=== PATIENT | male | born 1960 | race Caucasian/White ===

== ENCOUNTER 2023-06-26 20:05 | Observation (INO) | payer BC ==
[2023-06-26] MEDS ORDERED: TRANDATE 20 MG/4 ML SYRINGE IV ONE ×2 (20:21→20:31)
[2023-06-26] MEDS ORDERED: Sodium Chloride 0.9% 1000 ML 1,000 ML IV SCH (20:30)
[2023-06-26] MEDS ORDERED: Sodium Chloride 0.9% 1000 ML 1,000 ML ONE (20:32)
--- NOTE | 2023-06-26 20:35 | ERPHSYRPT ---
- History of Present Illness Time Seen by Provider: 06/26/23 20:31 Source: patient, family Exam Limitations: no limitations Patient Subjective Stated Complaint: pts states that she brought him in to be evaluated because he hasn't been acting right today or yesterday, states he has "just been off" and that his motor responses are delayed, his reactions are delayed, his speech is delayed and just not himself. Triage Nursing Assessment: pt ambulated to room 6 independently with slow steady gait after standing on scales for weight acquisition. pt is alert and oriented times three, able to speak in complete sentences, able to move all extremities, and with resp even and unlabored. pt answers all questions appropriate with delay in answering, delay in him turning to voice and making eye contact, and slowed motor movements. pt states he think he had a stroke yesterday at work but is unable to describe why he feels this way. at times it appears as if he is searching for the word he wants to use and when asked he answers "yes" that he s ometimes has a hard time finding the word he wants to say or how to express himself. pt denies cp, sob, difficulty breathing, dizziness, lightheadedness, weakness, numbness, tingling, n/v, diarrhea, difficulty with urination or bowel elimination. Physician History: Patient is 63-year-old male with history of hyper aplasia of the prostate, according to the patient has been acting confused since yesterday and slowing the response. When patient was asked patient has slow speech and he is feeling weak. He was all right since yesterday afternoon. In emergency room he denies any chest pain shortness of breath abdominal pain any bladder or bowel trouble. pts states that she brought him in to be evaluated because he hasn't been acting right today or yesterday, states he has "just been off" and that his motor responses are delayed, his reactions are delayed, his speech is delayed and just not himself. Timing/Duration: yesterday Severity: mild Associated Symptoms: denies symptoms Allergies/Adverse Reactions: No Known Drug Allergies Allergy (Verified 06/26/23 20:09) Home Medications: Tamsulosin HCl 0.4 mg [Flomax 0.4 MG] 0.4 mg PO DAILY 06/26/23 [History] Hx Tetanus, Diphtheria Vaccination/Date Given: No Hx Influenza Vaccination/Date Given: No Hx Pneumococcal Vaccination/Date Given: No Immunizations Up to Date: No Travel Risk - International Travel Have you traveled outside of the country in past 3 weeks: No - Coronavirus Screening Are you exhibiting any of the following symptoms?: No Close contact with a COVID-19 positive Pt in past 14-21 Days: No - Vaccine Status Have you recieved a Covid-19 vaccination: No - Review of Systems Constitutional: Weakness, No Fever, No Chills Eyes: No Symptoms Ears, Nose, & Throat: No Symptoms Respiratory: No Cough, No Dyspnea Cardiac: No Chest Pain, No Edema, No Syncope Abdominal/Gastrointestinal: No Abdominal Pain, No Nausea, No Vomiting, No Diarrhea Genitourinary Symptoms: No Dysuria Musculoskeletal: No Back Pain, No Neck Pain Skin: No Rash Neurological: Lethargy, Speech Changes, No Dizziness, No Focal Weakness, No Sensory Changes Psychological: No Symptoms Endocrine: No Symptoms All Other Systems: Reviewed and Negative - Past Medical History Pertinent Past Medical History: Yes Neurological History: No Pertinent History ENT History: No Pertinent History Cardiac History: No Pertinent History Respiratory History: No Pertinent History Endocrine Medical History: No Pertinent History Musculoskeletal History: Fractures GI Medical History: GERD History: No Pertinent History Psycho-Social History: No Pertinent History Male Reproductive Disorders: Prostate Problems Other Medical History: ankle surgery - Past Surgical History Past Surgical History: Yes Neuro Surgical History: No Pertinent History Cardiac: No Pertinent History Respiratory: No Pertinent History Gastrointestinal: No Pertinent History Genitourinary: No Pertinent History Musculoskeletal: Orthopedic Surgery Male Surgical History: No Pertinent History - Social History Smoking Status: Current every day smoker How long have you smoked: 1978 Exposure to second hand smoke: No Drug Use: none Patient Lives Alone: No - Nursing Vital Signs Nursing Vital Signs: Initial Vital Signs Temperature 98.3 F 06/26/23 20:11 Pulse Rate 69 06/26/23 20:11 Respiratory Rate 16 06/26/23 20:11 Blood Pressure 180/101 06/26/23 20:11 O2 Sat by Pulse Oximetry 96 06/26/23 20:11 Pain Scale Pain Intensity 0 - Physical Exam General Appearance: mild distress, alert, lethargy Eye Exam: PERRL/EOMI, eyes nml inspection Ears, Nose, Throat Exam: normal ENT inspection, TMs normal, pharynx normal, moist mucous membranes Neck Exam: normal inspection, non-tender, supple, full range of motion Respiratory Exam: normal breath sounds, lungs clear, No respiratory distress Cardiovascular Exam: regular rate/rhythm, normal heart sounds, normal peripheral pulses Gastrointestinal/Abdomen Exam: soft, normal bowel sounds, No tenderness, No mass Back Exam: normal inspection, normal range of motion, No CVA tenderness, No vertebral tenderness Extremity Exam: normal inspection, normal range of motion, pelvis stable Neurologic Exam: alert, cooperative, normal mood/affect, nml cerebellar function, nml station & gait, sensation nml, confusion, No motor deficits, No sensory deficit Skin Exam: normal color, warm, dry, No rash Lymphatic Exam: No adenopathy - Course Nursing assessment & vital signs reviewed: Yes EKG Interpreted by Me: Sinus Rhythm - CT Exams Head CT Interpretation: Tele-radiologist Report Ordered Tests: Active Orders 24 hr Category Date Time Status 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 STAT Care 06/26/23 20:21 Active EKG-ER Only STAT Care 06/26/23 20:21 Active IV Insertion STAT Care 06/26/23 20:29 Active NPO (ED) STAT Care 06/26/23 20:21 Active Oxygen-ED Only Nasal Cannula 2 lpm Care 06/26/23 20:21 Active Tele-Health Consult ROUTINE Cons 06/26/23 21:15 Active HEAD WITHOUT CONTRAST [CT] Stat Exams 06/26/23 20:21 Completed CBC W DIFF Stat Lab 06/26/23 21:05 Completed CMP Stat Lab 06/26/23 21:05 Completed ETHYL ALCOHOL Stat Lab 06/26/23 21:05 Completed MAGNESIUM Stat Lab 06/26/23 21:05 Completed TROPONIN Q4H Lab 06/26/23 21:05 Completed TROPONIN Q4H Lab 06/27/23 00:30 Ordered TROPONIN Q4H Lab 06/27/23 04:30 Ordered UA W/RFX UR CULTURE Stat Lab 06/26/23 20:21 Ordered Transfer Order Routine Transfer 06/26/23 Ordered Medication Summary Generic Name Dose Route Start Last Admin Trade Name Freq PRN Reason Stop Dose Admin Sodium Chloride 1,000 mls @ 100 mls/hr 06/26/23 20:30 06/26/23 20:38 Sodium Chloride 0.9% 1000 Ml IV 07/26/23 20:29 100 mls/hr .Q10H CAROL Administration Discontinued Medications Generic Name Dose Route Start Last Admin Trade Name Siobhan PRN Reason Stop Dose Admin Aspirin 324 mg 06/26/23 22:19 06/26/23 22:21 Aspirin 81 Mg Tab.Chew PO 06/26/23 22:20 324 mg STAT ONE Administration Labetalol HCl 20 mg 06/26/23 20:21 06/26/23 20:38 Labetalol Hcl 20 Mg/4 Ml Disp.Syringe IV 06/26/23 20:22 20 mg STAT ONE Administration Labetalol HCl Confirm 06/26/23 20:31 Labetalol Hcl 20 Mg/4 Ml Disp.Syringe Administered 06/26/23 20:32 Dose 20 mg IV .[employer] ONE Lab/Rad Data: Laboratory Result Diagrams 06/26/23 21:05 06/26/23 21:05 Laboratory Results 06/26/23 06/26/23 06/26/23 Range/Units 21:05 21:05 21:05 WBC 10.2 (4.0-10.5) x10^3/uL RBC 4.89 (4.1-5.6) x10^6/uL Hgb 15.5 (12.5-18.0) g/dL Hct 47.0 (42-50) % MCV 96.1 (78-100) fL MCH 31.7 (26-32) pg MCHC 33.0 (32-36) g/dL RDW 13.4 (11.5-14.0) % Plt Count 205 (150-450) x10^3/uL MPV 11.3 H (7.5-11.0) fL Gran % 63.2 (36.0-66.0) % Immature Gran % (Auto) 0.3 (0.00-0.4) % Nucleat RBC Rel Count 0.0 (0.00-0.1) % Eos # (Auto) 0.19 (0-0.5) x10^3/uL Immature Gran # (Auto) 0.03 (0.00-0.03) x10^3u/L Absolute Lymphs (auto) 2.62 (1.0-4.6) x10^3/uL Absolute Monos (auto) 0.84 (0.0-1.3) x10^3/uL Absolute Nucleated RBC 0.00 (0.00-0.01) x10^3u/L Lymphocytes % 25.6 (24.0-44.0) % Monocytes % 8.2 (0.0-12.0) % Eosinophils % 1.9 (0.00-5.0) % Basophils % 0.8 (0.0-0.4) % Absolute Granulocytes 6.47 (1.4-6.9) x10^3/uL Basophils # 0.08 (0-0.4) x10^3/uL Sodium 141 (137-145) mmol/L Potassium 4.0 (3.5-5.1) mmol/L Chloride 107 (98-107) mmol/L Carbon Dioxide 27 (22-30) mmol/L Anion Gap 10.1 (5-15) MEQ/L BUN 23 H (9-20) mg/dL Creatinine 1.10 (0.66-1.25) mg/dL Estimated GFR > 60.0 ML/MIN Glucose 104 (74-106) mg/dL Calcium 8.9 (8.4-10.2) mg/dL Magnesium 2.1 (1.6-2.3) mg/dL Total Bilirubin 0.70 (0.2-1.3) mg/dL AST 26 (17-59) U/L ALT 26 (0-50) U/L Alkaline Phosphatase 125 (38-126) U/L Troponin I < 0.012 (0.000-0.034) ng/mL Serum Total Protein 6.8 (6.3-8.2) g/dL Albumin 4.0 (3.5-5.0) g/dL Ethyl Alcohol < 10 (0-10) mg/dL 0005 CT/HEAD WITHOUT CONTRAST CLINICAL HISTORY:confusion COMPARISON:None. TECHNIQUE:An axial non-contrast CT scan of the brain was performed from the skull base to the high parietal region. CTDI 53.92 mGy, DLP 1016.25 mGycm. FINDINGS: The left frontal cortical-subcortical hypodense area was noted. Further evaluation is advised. No other focal parenchymal abnormalities are demonstrated. Normal size and configuration of the cerebral ventricles. No abnormal extra-axial fluid collections are present. The posterior fossa is unremarkable. The skull base and calvarium are intact. Moderate mucosal thickening in the ethmoid air cells and frontal sinus. The rest of the included portions of the paranasal sinuses and mastoid air cells are clear. IMPRESSION: 1. Cortical-subcortical hypodense area in the left frontal lobe. The possibility of acute infarct needs to be considered. Further evaluation with diffusion-weighted and contrast-enhanced MR is recommended. 2. Moderate mucosal thickening in the ethmoid air cells and frontal sinus. The ER was called at [phone] Ext: [phone] at 08:02 PM MASON HELPER, and results were communicated with Will. Electronically Signed by: Colby Dang MD. (06/26/2023 20:08:17 MASON HELPER) - Progress Progress: improved Progress Note: 06/26/23 21:28 Tele Neuroconsult ordered. Discussed with : Other Will see patient in: hospital (full admit) Counseled pt/family regarding: lab results, diagnosis, need for follow-up, rad results Medical Desision Making - Diagnostic Testing Diagnostic test were ordered, analyzed, and reviewed by me: Yes Radiological Interpretation: Teleradiologist Report - Risk of complications The pt has a high risk of morbidity or mortality based on: Drug therapy requiring intensive monitoring for toxicity, Decision regarding hospitilization or escalation of hosp level of care - Departure Departure Disposition: In-patient Admission Clinical Impression: CVA (cerebrovascular accident) Qualifiers: CVA mechanism: embolism Precerebral and cerebral artery: anterior cerebral artery Laterality of affected vessel: left Qualified Code(s): I63.422 - 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
--- NOTE | 2023-06-26 21:10 | XRAY ---
CLINICAL HISTORY:confusion COMPARISON:None. TECHNIQUE:An axial non-contrast CT scan of the brain was performed from the skull base to the high parietal region. CTDI 53.92 mGy, DLP 1016.25 mGycm. FINDINGS: The left frontal cortical-subcortical hypodense area was noted. Further evaluation is advised. No other focal parenchymal abnormalities are demonstrated. Normal size and configuration of the cerebral ventricles. No abnormal extra-axial fluid collections are present. The posterior fossa is unremarkable. The skull base and calvarium are intact. Moderate mucosal thickening in the ethmoid air cells and frontal sinus. The rest of the included portions of the paranasal sinuses and mastoid air cells are clear. IMPRESSION: 1. Cortical-subcortical hypodense area in the left frontal lobe. The possibility of acute infarct needs to be considered. Further evaluation with diffusion-weighted and contrast-enhanced MR is recommended. 2. Moderate mucosal thickening in the ethmoid air cells and frontal sinus. The ER was called at [phone] Ext: [phone] at 08:02 PM DIRECTOR VACCINE, and results were communicated with Will. Electronically Signed by: Colby Dang MD. (06/26/2023 20:08:17 DIRECTOR VACCINE)
[2023-06-26 21:19] LABS: Absolute Neutrophil Ct (ANC) 6.47 x10^3/uL (1.4-6.9); BASOPHIL % 0.8 % (0.0-0.4); Basophil (Absolute #) 0.08 x10^3/uL (0-0.4); Eosinophil % 1.9 % (0.00-5.0); Eosinophil (Absolute #) 0.19 x10^3/uL (0-0.5); Hemoglobin 15.5 g/dL (12.5-18.0); IMMATURE GRAN # 0.03 x10^3u/L (0.00-0.03); IMMATURE GRAN % 0.3 % (0.00-0.4); Lymphocyte (Absolute #) 2.62 x10^3/uL (1.0-4.6); Lymphocytes % 25.6 % (24.0-44.0); Mean Cell Volume 96.1 fL (78-100); Mean Corpuscular Hemoglobin 31.7 pg (26-32); Mean Platelet Volume 11.3 fL (7.5-11.0); Monocyte (Absolute #) 0.84 x10^3/uL (0.0-1.3); Monocytes % 8.2 % (0.0-12.0); Neutrophil % 63.2 % (36.0-66.0); Platelet Count 205 x10^3/uL (150-450); Red Blood Count 4.89 x10^6/uL (4.1-5.6); Red Cell Distribution Width 13.4 % (11.5-14.0); White Blood Count 10.2 x10^3/uL (4.0-10.5)
[2023-06-26 21:22] LABS: ALKALINE PHOSPHATASE 125 U/L (38-126); ANION GAP 10.1 MEQ/L (5-15); BLOOD UREA NITROGEN 23 mg/dL (9-20); CHLORIDE 107 mmol/L (98-107); Calcium 8.9 mg/dL (8.4-10.2); Carbon Dioxide 27 mmol/L (22-30); EST GLOMERULAR FILTRATION RATE > 60.0 ML/MIN; ETHYL ALCOHOL < 10 mg/dL (0-10); Glucose 104 mg/dL (74-106); MAGNESIUM 2.1 mg/dL (1.6-2.3); SGOT/AST 26 U/L (17-59); SGPT/ALT 26 U/L (0-50); SODIUM 141 mmol/L (137-145); Total Protein 6.8 g/dL (6.3-8.2)
[2023-06-26] MEDS ORDERED: BABY ASPIRIN 81 MG CHEW PO ONE (22:19)
--- NOTE | 2023-06-27 02:09 | PCM.HP ---
History of Present Illness - Chief Complaint Chief Complaint: cva Date: 06/27/23 History of Present Illness: This is a 63-year-old male admitted after work-up in ER revealed left likely embolic CVA. He has past medical history of BPH. He was brought to the ED this afternoon for evaluation of slow speech and feeling weak. Initial vital signs were afebrile, heart rate 69, blood pressure 180/101 Labs significant for WBC 10, sodium 141, creatinine 1.1, alcohol level less than [address] revealed corticalsubcortical hypodense area in the left frontal lobe. Neuro consult was obtained and he is admitted for further work-up. - Review of Systems Eyes: No Symptoms Ears, Nose, & Throat: No Symptoms Respiratory: No Symptoms Cardiac: No Symptoms Abdominal/Gastrointestinal: No Symptoms Genitourinary Symptoms: No Symptoms Musculoskeletal: No Symptoms Skin: No Symptoms Neurological: No Symptoms Psychological: No Symptoms Endocrine: No Symptoms Medications & Allergies Home Medications: Home Medication List Tamsulosin HCl 0.4 mg [Flomax 0.4 MG] 0.4 mg PO DAILY 06/26/23 [History Confirmed 06/26/23] Allergies/Adverse Reactions: Allergies Allergy/AdvReac Type Severity Reaction Status Date / Time No Known Drug Allergies Allergy Verified 06/26/23 20:09 - Past Medical History Past Medical History: Yes Neurological History: No Pertinent History ENT History: No Pertinent History Cardiac History: No Pertinent History Respiratory History: No Pertinent History Endocrine Medical History: No Pertinent History Musculoskelatal History: Arthritis GI Medical History: No Pertinent History History: No Pertinent History Pyscho-Social History: No Pertinent History Male Reproductive Disorders: No Pertinent History Comment: ankle surgery - Past Surgical History Past Surgical History: Yes Neuro Surgical History: No Pertinent History Cardiac History: No Pertinent History Respiratory Surgery: No Pertinent History GI Surgical History: No Pertinent History Genitourinary Surgical Hx: No Pertinent History Musculskeletal Surgical Hx: No Pertinent History Male Surgical History: No Pertinent History - Social History Smoking Status: Current every day smoker How long have you smoked: 40 years Exposure to second hand smoke: No Alcohol: None Drug Use: none - Physical Exam Vital Signs: Vital Signs - 24 hr Temp Pulse Resp BP BP Pulse Ox 06/27/23 00:00 58 L 20 144/88 95 06/26/23 23:50 57 L 16 155/84 96 06/26/23 23:40 57 L 18 138/99 97 06/26/23 23:30 58 L 18 142/79 98 06/26/23 23:20 54 L 15 127/74 97 06/26/23 23:10 50 L 14 123/77 97 06/26/23 23:00 58 L 22 125/75 97 06/26/23 22:50 59 L 20 148/79 96 06/26/23 22:40 59 L 17 140/79 97 06/26/23 22:30 66 17 138/84 96 06/26/23 22:20 66 21 148/84 97 06/26/23 22:10 61 16 147/88 97 06/26/23 22:00 63 19 171/95 97 06/26/23 21:50 61 18 150/93 97 06/26/23 21:41 64 17 163/88 98 06/26/23 21:30 62 19 163/97 97 06/26/23 21:20 63 21 151/85 98 06/26/23 21:10 60 17 142/91 97 06/26/23 20:50 64 12 153/105 97 06/26/23 20:40 75 21 162/95 97 06/26/23 20:27 72 18 174/98 97 06/26/23 20:11 98.3 F 69 16 180/101 96 General Appearance: no apparent distress Neurologic Exam: alert, oriented x 3 Eye Exam: PERRL/EOMI Ears, Nose, Throat Exam: normal ENT inspection Neck Exam: normal inspection Respiratory Exam: normal breath sounds Cardiovascular Exam: regular rate/rhythm Gastrointestinal/Abdomen Exam: soft Extremity Exam: normal inspection Skin Exam: normal color Results - Labs Lab/Micro Results: Lab Results-Last 24 Hours 06/26/23 06/26/23 06/26/23 Range/Units 21:05 21:05 21:05 WBC 10.2 (4.0-10.5) x10^3/uL RBC 4.89 (4.1-5.6) x10^6/uL Hgb 15.5 (12.5-18.0) g/dL Hct 47.0 (42-50) % MCV 96.1 (78-100) fL MCH 31.7 (26-32) pg MCHC 33.0 (32-36) g/dL RDW 13.4 (11.5-14.0) % Plt Count 205 (150-450) x10^3/uL MPV 11.3 H (7.5-11.0) fL Gran % 63.2 (36.0-66.0) % Immature Gran % (Auto) 0.3 (0.00-0.4) % Nucleat RBC Rel Count 0.0 (0.00-0.1) % Eos # (Auto) 0.19 (0-0.5) x10^3/uL Immature Gran # (Auto) 0.03 (0.00-0.03) x10^3u/L Absolute Lymphs (auto) 2.62 (1.0-4.6) x10^3/uL Absolute Monos (auto) 0.84 (0.0-1.3) x10^3/uL Absolute Nucleated RBC 0.00 (0.00-0.01) x10^3u/L Lymphocytes % 25.6 (24.0-44.0) % Monocytes % 8.2 (0.0-12.0) % Eosinophils % 1.9 (0.00-5.0) % Basophils % 0.8 (0.0-0.4) % Absolute Granulocytes 6.47 (1.4-6.9) x10^3/uL Basophils # 0.08 (0-0.4) x10^3/uL Sodium 141 (137-145) mmol/L Potassium 4.0 (3.5-5.1) mmol/L Chloride 107 (98-107) mmol/L Carbon Dioxide 27 (22-30) mmol/L Anion Gap 10.1 (5-15) MEQ/L BUN 23 H (9-20) mg/dL Creatinine 1.10 (0.66-1.25) mg/dL Estimated GFR > 60.0 ML/MIN Glucose 104 (74-106) mg/dL Calcium 8.9 (8.4-10.2) mg/dL Magnesium 2.1 (1.6-2.3) mg/dL Total Bilirubin 0.70 (0.2-1.3) mg/dL AST 26 (17-59) U/L ALT 26 (0-50) U/L Alkaline Phosphatase 125 (38-126) U/L Troponin I < 0.012 (0.000-0.034) ng/mL Serum Total Protein 6.8 (6.3-8.2) g/dL Albumin 4.0 (3.5-5.0) g/dL Ethyl Alcohol < 10 (0-10) mg/dL 06/27/23 Range/Units 00:40 WBC (4.0-10.5) x10^3/uL RBC (4.1-5.6) x10^6/uL Hgb (12.5-18.0) g/dL Hct (42-50) % MCV (78-100) fL MCH (26-32) pg MCHC (32-36) g/dL RDW (11.5-14.0) % Plt Count (150-450) x10^3/uL MPV (7.5-11.0) fL Gran % (36.0-66.0) % Immature Gran % (Auto) (0.00-0.4) % Nucleat RBC Rel Count (0.00-0.1) % Eos # (Auto) (0-0.5) x10^3/uL Immature Gran # (Auto) (0.00-0.03) x10^3u/L Absolute Lymphs (auto) (1.0-4.6) x10^3/uL Absolute Monos (auto) (0.0-1.3) x10^3/uL Absolute Nucleated RBC (0.00-0.01) x10^3u/L Lymphocytes % (24.0-44.0) % Monocytes % (0.0-12.0) % Eosinophils % (0.00-5.0) % Basophils % (0.0-0.4) % Absolute Granulocytes (1.4-6.9) x10^3/uL Basophils # (0-0.4) x10^3/uL Sodium (137-145) mmol/L Potassium (3.5-5.1) mmol/L Chloride (98-107) mmol/L Carbon Dioxide (22-30) mmol/L Anion Gap (5-15) MEQ/L BUN (9-20) mg/dL Creatinine (0.66-1.25) mg/dL Estimated GFR ML/MIN Glucose (74-106) mg/dL Calcium (8.4-10.2) mg/dL Magnesium (1.6-2.3) mg/dL Total Bilirubin (0.2-1.3) mg/dL AST (17-59) U/L ALT (0-50) U/L Alkaline Phosphatase (38-126) U/L Troponin I < 0.012 (0.000-0.034) ng/mL Serum Total Protein (6.3-8.2) g/dL Albumin (3.5-5.0) g/dL Ethyl Alcohol (0-10) mg/dL - Radiology Impressions Radiology Exams & Impressions: Radiology Procedures Category Date Time Status CAROTID BILATERAL [US] Routine Exams 06/27/23 00:[address] ANGIOGRAPHY NECK [CT] Routine Exams 06/27/23 00:39 Ordered CTA HEAD W AND/OR WO CONTRAST [CT] Routine Exams 06/27/23 08:00 Ordered ECHO W/2D AND DOPPLER [US] Routine Exams 06/27/23 00:39 Ordered HEAD WITHOUT CONTRAST [CT] Stat Exams 06/26/23 20:21 Completed MRA BRAIN WITHOUT CONTRAST [MRI] Routine Exams 06/27/23 00:39 Ordered MRA NECK WITHOUT CONTRAST [MRI] Routine Exams 06/27/23 00:39 Ordered MRI BRAIN W & W/O CONTRAST [MRI] Routine Exams 06/27/23 00:39 Ordered - Other Procedures and Tests Respiratory Therapy 06/27/23 01:36 Smoking Cessation Education ONCE Assessment/Plan (1) CVA (cerebrovascular accident) Current Visit: Yes Status: Acute Qualifiers: CVA mechanism: embolism Precerebral and cerebral artery: anterior cerebral artery Laterality of affected vessel: left Qualified Code(s): I63.422 - 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
[2023-06-27 02:50] LABS: Appearance Clear (Clear); Bacteria None Seen /HPF (None Seen); Bilirubin Negative (Negative); Blood Negative (Negative); Epithelial Cells None Seen /HPF (None Seen); Glucose, Urine Negative (Negative); Hyaline Casts NONE SEEN /LPF (0-2); Ketones Negative (Negative); Leukocyte Esterase Trace (Negative); Nitrite Negative (Negative); Protein,Urine Dip Negative (Negative); RBC 0-2 /HPF (0-5)
[2023-06-27 02:51] LABS: ADD URINE CULTURE? NO (NO)
[2023-06-27 05:57] LABS: Risk Ratio 6.2
[2023-06-27 06:09] LABS: Absolute Neutrophil Ct (ANC) 4.72 x10^3/uL (1.4-6.9); BASOPHIL % 0.7 % (0.0-0.4); Basophil (Absolute #) 0.06 x10^3/uL (0-0.4); Eosinophil % 2.4 % (0.00-5.0); Eosinophil (Absolute #) 0.21 x10^3/uL (0-0.5); Hematocrit 46.7 % (42-50); Hemoglobin 15.4 g/dL (12.5-18.0); IMMATURE GRAN # 0.03 x10^3u/L (0.00-0.03); IMMATURE GRAN % 0.3 % (0.00-0.4); Lymphocyte (Absolute #) 2.89 x10^3/uL (1.0-4.6); Lymphocytes % 33.3 % (24.0-44.0); Mean Cell Volume 95.5 fL (78-100); Mean Corpuscular Hemoglobin 31.5 pg (26-32); Mean Platelet Volume 11.6 fL (7.5-11.0); Monocyte (Absolute #) 0.76 x10^3/uL (0.0-1.3); Monocytes % 8.8 % (0.0-12.0); Neutrophil % 54.5 % (36.0-66.0); Platelet Count 194 x10^3/uL (150-450); Red Blood Count 4.89 x10^6/uL (4.1-5.6); Red Cell Distribution Width 13.5 % (11.5-14.0); White Blood Count 8.7 x10^3/uL (4.0-10.5)
[2023-06-27 06:15] LABS: ALBUMIN 3.6 g/dL (3.5-5.0); ALKALINE PHOSPHATASE 103 U/L (38-126); ANION GAP 10.1 MEQ/L (5-15); BLOOD UREA NITROGEN 21 mg/dL (9-20); CHLORIDE 109 mmol/L (98-107); Calcium 8.7 mg/dL (8.4-10.2); Carbon Dioxide 26 mmol/L (22-30); Creatinine 1 0.95 mg/dL (0.66-1.25); EST GLOMERULAR FILTRATION RATE > 60.0 ML/MIN; Glucose 119 mg/dL (74-106); Potassium 3.7 mmol/L (3.5-5.1); SGOT/AST 24 U/L (17-59); SGPT/ALT 23 U/L (0-50); SODIUM 142 mmol/L (137-145); Total Protein 6.2 g/dL (6.3-8.2)
[2023-06-27] MEDS: Sodium Chloride 0.9% 1000 ML 1,000 ML IV SCH (06:30)
--- NOTE | 2023-06-27 07:40 | PCM.NOTE ---
Date and Time: 06/27/23728 Subjective Assessment: Mr. Lobo is a 63 year old male with a PMHX of bph and current every day smoker that presented to ER 06/26/23 with AMS per spouse, headache, and aphasia since the day prior admitted for CVA. Neurology consult has been obtained with further workup pending at this time. During interview/exam A&O x 3, CN 2-12 grossly intact, 5/5 strength all extremities, no drift, no facial drooping, speech clear, moves all extremities well. Denies fever, cough, sob, cp, abdominal pain, ALEXANDER, dizziness, N/V/D. Patient tearful during interview. Counseled and advised smoking cessation, patient will consider but not ready at this time. - Review of Systems Constitutional: No Symptoms Eyes: No Symptoms Ears, Nose, & Throat: No Symptoms Respiratory: No Symptoms Cardiac: No Symptoms Abdominal/Gastrointestinal: No Symptoms Genitourinary Symptoms: No Symptoms Musculoskeletal: No Symptoms Skin: No Symptoms Neurological: Speech Changes Psychological: No Symptoms Endocrine: No Symptoms Hematologic/Lymphatic: No Symptoms Immunological/Allergic: No Symptoms Objective Exam General Appearance: no apparent distress Neurologic Exam: alert, oriented x 3, cooperative, picture frame maker II-XII nml as tested, nml station & gait, sensation nml Skin Exam: normal color Eye Exam: PERRL Ears, Nose, Throat Exam: normal ENT inspection Neck Exam: normal inspection Respiratory Exam: normal breath sounds, lungs clear Cardiovascular Exam: regular rate/rhythm, normal heart sounds Gastrointestinal/Abdomen Exam: soft, normal bowel sounds Extremity Exam: normal inspection, normal range of motion Back Exam: normal inspection Male Genitalia Exam: deferred Rectal Exam: deferred OBJECTIVE DATA Vital Signs: Vital Signs - 24 hr Temp Pulse Resp BP BP Pulse Ox 06/27/23 04:00 97.7 F 52 L 20 140/85 96 06/27/23 00:00 58 L 20 144/88 95 06/26/23 23:50 57 L 16 155/84 96 06/26/23 23:40 57 L 18 138/99 97 06/26/23 23:30 58 L 18 142/79 98 06/26/23 23:20 54 L 15 127/74 97 06/26/23 23:10 50 L 14 123/77 97 06/26/23 23:00 58 L 22 125/75 97 06/26/23 22:50 59 L 20 148/79 96 06/26/23 22:40 59 L 17 140/79 97 06/26/23 22:30 66 17 138/84 96 06/26/23 22:20 66 21 148/84 97 06/26/23 22:10 61 16 147/88 97 06/26/23 22:00 63 19 171/95 97 06/26/23 21:50 61 18 150/93 97 06/26/23 21:41 64 17 163/88 98 06/26/23 21:30 62 19 163/97 97 06/26/23 21:20 63 21 151/85 98 06/26/23 21:10 60 17 142/91 97 06/26/23 20:50 64 12 153/105 97 06/26/23 20:40 75 21 162/95 97 06/26/23 20:27 72 18 174/98 97 06/26/23 20:11 98.3 F 69 16 180/101 96 Pain Assessment - Last Documented Pain Intensity 0 Intake and Output: Intake & Output 06/24/23 06/25/23 06/26/23 06/27/23 11:59 11:59 11:59 11:59 Intake Total 667 Output Total 225 Balance 442 Weight 99.5 kg Lab Results: Lab Results-Last 24 Hours 06/26/23 06/26/23 06/26/23 Range/Units 02:36 21:05 21:05 WBC 10.2 (4.0-10.5) x10^3/uL RBC 4.89 (4.1-5.6) x10^6/uL Hgb 15.5 (12.5-18.0) g/dL Hct 47.0 (42-50) % MCV 96.1 (78-100) fL MCH 31.7 (26-32) pg MCHC 33.0 (32-36) g/dL RDW 13.4 (11.5-14.0) % Plt Count 205 (150-450) x10^3/uL MPV 11.3 H (7.5-11.0) fL Gran % 63.2 (36.0-66.0) % Immature Gran % (Auto) 0.3 (0.00-0.4) % Nucleat RBC Rel Count 0.0 (0.00-0.1) % Eos # (Auto) 0.19 (0-0.5) x10^3/uL Immature Gran # (Auto) 0.03 (0.00-0.03) x10^3u/L Absolute Lymphs (auto) 2.62 (1.0-4.6) x10^3/uL Absolute Monos (auto) 0.84 (0.0-1.3) x10^3/uL Absolute Nucleated RBC 0.00 (0.00-0.01) x10^3u/L Lymphocytes % 25.6 (24.0-44.0) % Monocytes % 8.2 (0.0-12.0) % Eosinophils % 1.9 (0.00-5.0) % Basophils % 0.8 (0.0-0.4) % Absolute Granulocytes 6.47 (1.4-6.9) x10^3/uL Basophils # 0.08 (0-0.4) x10^3/uL Sodium 141 (137-145) mmol/L Potassium 4.0 (3.5-5.1) mmol/L Chloride 107 (98-107) mmol/L Carbon Dioxide 27 (22-30) mmol/L Anion Gap 10.1 (5-15) MEQ/L BUN 23 H (9-20) mg/dL Creatinine 1.10 (0.66-1.25) mg/dL Estimated GFR > 60.0 ML/MIN Glucose 104 (74-106) mg/dL Hemoglobin A1c (4.5-6.0) % Calcium 8.9 (8.4-10.2) mg/dL Magnesium 2.1 (1.6-2.3) mg/dL Total Bilirubin 0.70 (0.2-1.3) mg/dL AST 26 (17-59) U/L ALT 26 (0-50) U/L Alkaline Phosphatase 125 (38-126) U/L Troponin I (0.000-0.034) ng/mL Serum Total Protein 6.8 (6.3-8.2) g/dL Albumin 4.0 (3.5-5.0) g/dL Triglycerides (30-150) mg/dL Cholesterol (50-200) mg/dL LDL Cholesterol (30-100) mg/dL HDL Cholesterol (40-60) mg/dL Heart Disease Risk Ratio Urine Color Yellow (Yellow) Urine Appearance Clear (Clear) Urine pH 7.0 (4.6-8.0) Ur Specific [place] 1.020 (1.005-1.030) Urine Protein Negative (Negative) Urine Glucose (UA) Negative (Negative) mg/dL Urine Ketones Negative (Negative) Urine Blood Negative (Negative) Urine Nitrite Negative (Negative) Urine Bilirubin Negative (Negative) Urine Urobilinogen 1.0 A (0.2) mg/dL Ur Leukocyte Esterase Trace A (Negative) U Hyaline Cast (Auto) NONE SEEN (0-2) /LPF Urine Microscopic RBC 0-2 (0-5) /HPF Urine Microscopic WBC 3-5 (0-5) /HPF Ur Epithelial Cells None Seen (None Seen) /HPF Urine Bacteria None Seen (None Seen) /HPF Urine Culture Reflexed NO (NO) Ethyl Alcohol < 10 (0-10) mg/dL 06/26/23 06/27/23 06/27/23 Range/Units 21:05 00:40 05:05 WBC (4.0-10.5) x10^3/uL RBC (4.1-5.6) x10^6/uL Hgb (12.5-18.0) g/dL Hct (42-50) % MCV (78-100) fL MCH (26-32) pg MCHC (32-36) g/dL RDW (11.5-14.0) % Plt Count (150-450) x10^3/uL MPV (7.5-11.0) fL Gran % (36.0-66.0) % Immature Gran % (Auto) (0.00-0.4) % Nucleat RBC Rel Count (0.00-0.1) % Eos # (Auto) (0-0.5) x10^3/uL Immature Gran # (Auto) (0.00-0.03) x10^3u/L Absolute Lymphs (auto) (1.0-4.6) x10^3/uL Absolute Monos (auto) (0.0-1.3) x10^3/uL Absolute Nucleated RBC (0.00-0.01) x10^3u/L Lymphocytes % (24.0-44.0) % Monocytes % (0.0-12.0) % Eosinophils % (0.00-5.0) % Basophils % (0.0-0.4) % Absolute Granulocytes (1.4-6.9) x10^3/uL Basophils # (0-0.4) x10^3/uL Sodium (137-145) mmol/L Potassium (3.5-5.1) mmol/L Chloride (98-107) mmol/L Carbon Dioxide (22-30) mmol/L Anion Gap (5-15) MEQ/L BUN (9-20) mg/dL Creatinine (0.66-1.25) mg/dL Estimated GFR ML/MIN Glucose (74-106) mg/dL Hemoglobin A1c (4.5-6.0) % Calcium (8.4-10.2) mg/dL Magnesium (1.6-2.3) mg/dL Total Bilirubin (0.2-1.3) mg/dL AST (17-59) U/L ALT (0-50) U/L Alkaline Phosphatase (38-126) U/L Troponin I < 0.012 < 0.012 < 0.012 (0.000-0.034) ng/mL Serum Total Protein (6.3-8.2) g/dL Albumin (3.5-5.0) g/dL Triglycerides (30-150) mg/dL Cholesterol (50-200) mg/dL LDL Cholesterol (30-100) mg/dL HDL Cholesterol (40-60) mg/dL Heart Disease Risk Ratio Urine Color (Yellow) Urine Appearance (Clear) Urine pH (4.6-8.0) Ur Specific [place] (1.005-1.030) Urine Protein (Negative) Urine Glucose (UA) (Negative) mg/dL Urine Ketones (Negative) Urine Blood (Negative) Urine Nitrite (Negative) Urine Bilirubin (Negative) Urine Urobilinogen (0.2) mg/dL Ur Leukocyte Esterase (Negative) U Hyaline Cast (Auto) (0-2) /LPF Urine Microscopic RBC (0-5) /HPF Urine Microscopic WBC (0-5) /HPF Ur Epithelial Cells (None Seen) /HPF Urine Bacteria (None Seen) /HPF Urine Culture Reflexed (NO) Ethyl Alcohol (0-10) mg/dL 06/27/23 06/27/23 06/27/23 Range/Units 05:05 05:05 05:05 WBC 8.7 (4.0-10.5) x10^3/uL RBC 4.89 (4.1-5.6) x10^6/uL Hgb 15.4 (12.5-18.0) g/dL Hct 46.7 (42-50) % MCV 95.5 (78-100) fL MCH 31.5 (26-32) pg MCHC 33.0 (32-36) g/dL RDW 13.5 (11.5-14.0) % Plt Count 194 (150-450) x10^3/uL MPV 11.6 H (7.5-11.0) fL Gran % 54.5 (36.0-66.0) % Immature Gran % (Auto) 0.3 (0.00-0.4) % Nucleat RBC Rel Count 0.0 (0.00-0.1) % Eos # (Auto) 0.21 (0-0.5) x10^3/uL Immature Gran # (Auto) 0.03 (0.00-0.03) x10^3u/L Absolute Lymphs (auto) 2.89 (1.0-4.6) x10^3/uL Absolute Monos (auto) 0.76 (0.0-1.3) x10^3/uL Absolute Nucleated RBC 0.00 (0.00-0.01) x10^3u/L Lymphocytes % 33.3 (24.0-44.0) % Monocytes % 8.8 (0.0-12.0) % Eosinophils % 2.4 (0.00-5.0) % Basophils % 0.7 (0.0-0.4) % Absolute Granulocytes 4.72 (1.4-6.9) x10^3/uL Basophils # 0.06 (0-0.4) x10^3/uL Sodium (137-145) mmol/L Potassium (3.5-5.1) mmol/L Chloride (98-107) mmol/L Carbon Dioxide (22-30) mmol/L Anion Gap (5-15) MEQ/L BUN (9-20) mg/dL Creatinine (0.66-1.25) mg/dL Estimated GFR ML/MIN Glucose (74-106) mg/dL Hemoglobin A1c 5.71 (4.5-6.0) % Calcium (8.4-10.2) mg/dL Magnesium (1.6-2.3) mg/dL Total Bilirubin (0.2-1.3) mg/dL AST (17-59) U/L ALT (0-50) U/L Alkaline Phosphatase (38-126) U/L Troponin I (0.000-0.034) ng/mL Serum Total Protein (6.3-8.2) g/dL Albumin (3.5-5.0) g/dL Triglycerides 116 (30-150) mg/dL Cholesterol 205 H (50-200) mg/dL LDL Cholesterol 134 H (30-100) mg/dL HDL Cholesterol 33 L (40-60) mg/dL Heart Disease Risk Ratio 6.2 Urine Color (Yellow) Urine Appearance (Clear) Urine pH (4.6-8.0) Ur Specific [place] (1.005-1.030) Urine Protein (Negative) Urine Glucose (UA) (Negative) mg/dL Urine Ketones (Negative) Urine Blood (Negative) Urine Nitrite (Negative) Urine Bilirubin (Negative) Urine Urobilinogen (0.2) mg/dL Ur Leukocyte Esterase (Negative) U Hyaline Cast (Auto) (0-2) /LPF Urine Microscopic RBC (0-5) /HPF Urine Microscopic WBC (0-5) /HPF Ur Epithelial Cells (None Seen) /HPF Urine Bacteria (None Seen) /HPF Urine Culture Reflexed (NO) Ethyl Alcohol (0-10) mg/dL 06/27/23 Range/Units 05:05 WBC (4.0-10.5) x10^3/uL RBC (4.1-5.6) x10^6/uL Hgb (12.5-18.0) g/dL Hct (42-50) % MCV (78-100) fL MCH (26-32) pg MCHC (32-36) g/dL RDW (11.5-14.0) % Plt Count (150-450) x10^3/uL MPV (7.5-11.0) fL Gran % (36.0-66.0) % Immature Gran % (Auto) (0.00-0.4) % Nucleat RBC Rel Count (0.00-0.1) % Eos # (Auto) (0-0.5) x10^3/uL Immature Gran # (Auto) (0.00-0.03) x10^3u/L Absolute Lymphs (auto) (1.0-4.6) x10^3/uL Absolute Monos (auto) (0.0-1.3) x10^3/uL Absolute Nucleated RBC (0.00-0.01) x10^3u/L Lymphocytes % (24.0-44.0) % Monocytes % (0.0-12.0) % Eosinophils % (0.00-5.0) % Basophils % (0.0-0.4) % Absolute Granulocytes (1.4-6.9) x10^3/uL Basophils # (0-0.4) x10^3/uL Sodium 142 (137-145) mmol/L Potassium 3.7 (3.5-5.1) mmol/L Chloride 109 H (98-107) mmol/L Carbon Dioxide 26 (22-30) mmol/L Anion Gap 10.1 (5-15) MEQ/L BUN 21 H (9-20) mg/dL Creatinine 0.95 (0.66-1.25) mg/dL Estimated GFR > 60.0 ML/MIN Glucose 119 H (74-106) mg/dL Hemoglobin A1c (4.5-6.0) % Calcium 8.7 (8.4-10.2) mg/dL Magnesium (1.6-2.3) mg/dL Total Bilirubin 0.70 (0.2-1.3) mg/dL AST 24 (17-59) U/L ALT 23 (0-50) U/L Alkaline Phosphatase 103 (38-126) U/L Troponin I (0.000-0.034) ng/mL Serum Total Protein 6.2 L (6.3-8.2) g/dL Albumin 3.6 (3.5-5.0) g/dL Triglycerides (30-150) mg/dL Cholesterol (50-200) mg/dL LDL Cholesterol (30-100) mg/dL HDL Cholesterol (40-60) mg/dL Heart Disease Risk Ratio Urine Color (Yellow) Urine Appearance (Clear) Urine pH (4.6-8.0) Ur Specific [place] (1.005-1.030) Urine Protein (Negative) Urine Glucose (UA) (Negative) mg/dL Urine Ketones (Negative) Urine Blood (Negative) Urine Nitrite (Negative) Urine Bilirubin (Negative) Urine Urobilinogen (0.2) mg/dL Ur Leukocyte Esterase (Negative) U Hyaline Cast (Auto) (0-2) /LPF Urine Microscopic RBC (0-5) /HPF Urine Microscopic WBC (0-5) /HPF Ur Epithelial Cells (None Seen) /HPF Urine Bacteria (None Seen) /HPF Urine Culture Reflexed (NO) Ethyl Alcohol (0-10) mg/dL Radiology Exams: Radiology Procedures Category Date Time Status CAROTID BILATERAL [US] Routine Exams 06/27/23 00:39 Ordered CHEST 2 VIEWS (PA AND LAT) Routine Exams 06/27/23 07:[address] ANGIOGRAPHY NECK [CT] Routine Exams 06/27/23 00:39 Ordered CTA HEAD W AND/OR WO CONTRAST [CT] Routine Exams 06/27/23 08:00 Ordered ECHO W/2D AND DOPPLER [US] Routine Exams 06/27/23 00:39 Ordered HEAD WITHOUT CONTRAST [CT] Stat Exams 06/26/23 20:21 Completed MRA BRAIN WITHOUT CONTRAST [MRI] Routine Exams 06/27/23 00:39 Ordered MRA NECK WITHOUT CONTRAST [MRI] Routine Exams 06/27/23 00:39 Ordered MRI BRAIN W & W/O CONTRAST [MRI] Routine Exams 06/27/23 00:39 Ordered Assessment/Plan (1) CVA (cerebrovascular accident) Current Visit: Yes Status: Acute Qualifiers: CVA mechanism: embolism Precerebral and cerebral artery: anterior cerebral artery Laterality of affected vessel: left Qualified Code(s): I63.422 - Cerebral infarction due to embolism of left anterior cerebral artery Assessment & Plan: CVA -Admit Observation tele -as evidenced by CT showing subacute/acute ischemic infarction, two areas in the left fronal lobe very anterior/ no mass effect; ventricular horn may have demonstrated some ex vacuo effect per neurology read -NIH score: 2 -Risk factors: Smoker, Age > 60 years, Blood pressure > 140/90 mmHg on presentation, Clinical features:speech disturbance without weakness Neurology consult obtained with the following recommendations: -Out of window for tPA/permissive htn, plan for gentle control of BP with goal <140 /<90 -Will start the patient on ASA 81 mg and high dose statin preferably Lipitor 8 0mg -CBC, BMP, Mg, lipid panel, TSH, HgbA1c, cpk, esr, crp, CXR ordered -Will maintain on Telemetry to check for Arrhythmias and may eventually need to be discharged on Holter Monitor -Will get MRA Head and Neck and an ECHO bubble study; consider carotid duplex -PT/OT and maintain NPO until evaluated by [employer]KER -Neuroccks Q4H -NIHSS monitoring - Per guidelines, (CHANCE & POINT) will initiate 3 weeks dual antiplatelets, loading with ASA 325 mg and Plavix 300 mg, then continue after 24 hours with ASA 81 mg daily and Plavix 75 mg daily. After 3 weeks to continue with one antiplatelet ASA 81 mg daily, for secondary stroke prevention. If LD >70 then to switch to Atorvastatin 80 mg daily (LDL goal less than 70 mg/dL, per SPARCL associated with 28% RRR, and 5 years ARR of 2.2%) for secondary stroke prevention. -Per neuro recs, initiation of atorvastatin on hold pending cpk, LFTs wnl -Advise smoking cessation, patient will consider, nicotine patch prn (declines currently) Code(s): I63.9 - CEREBRAL INFARCTION, UNSPECIFIED (2) Essential hypertension with goal blood pressure less than 140/90 Current Visit: Yes Status: Acute Assessment & Plan: -See CVA, past permissive HTN, labetalol 50mg po bid for goal of <140/90 per neuro recs Code(s): I10 - ESSENTIAL (PRIMARY) HYPERTENSION (3) Smoker Current Visit: Yes Status: Chronic Assessment & Plan: -Advise smoking cessation -Nicotine patch Code(s): F17.200 - NICOTINE DEPENDENCE, UNSPECIFIED, UNCOMPLICATED
--- NOTE | 2023-06-27 08:26 | XRAY ---
CLINICAL HISTORY:cv stroke COMPARISON:06/26/2023 CT HEAD WITHOUT CONTRAST TECHNIQUE:CT neck angiography with the intravenous administration of contrast material (CT angiography) was performed. FINDINGS: The left frontal cortical-subcortical hypodense area was redemonstrated. No evidence of significant stenosis or occlusion. Normal opacification of both carotid systems starting from the origin of both common carotid arteries through their course to the bifurcation with normal course and caliber of both internal and external carotid arteries. No significant stenotic segments are seen. The vertebro-basilar system is also well opacified with no significantly attenuated segments in the foramina transversarium of the cervical vertebrae. Normal CT appearance of the thyroid gland. Normal appearance of the muscles of the neck. No supra or infraglottic laryngeal masses are seen. No pathologically enlarged cervical lymph nodes. IMPRESSION: The left frontal cortical-subcortical hypodense area was redemonstrated. Unremarkable CT angiography of the extracranial carotid and vertebral arteries bilaterally with no evidence of significant stenosis or occlusion. Electronically Signed by: Colby Dang MD. (06/27/2023 07:24:51 RN IV THERAPY)
[2023-06-27 08:29] LABS: MAGNESIUM 2.2 mg/dL (1.6-2.3)
--- NOTE | 2023-06-27 08:30 | XRAY ---
CLINICAL HISTORY:CVA COMPARISON:06/26/2023 CT HEAD WITHOUT CONTRAST TECHNIQUE:Axial sections of CT head angiogram were obtained after administration of intravenous contrast. Reformatted coronal and sagittal images were acquired. FINDINGS: The left frontal cortical-subcortical hypodense area was redemonstrated. Normal opacification of the internal carotid arteries, anterior cerebral arteries anterior communicating artery, and middle cerebral arteries these from the anterior circulation. The both vertebral arteries, basilar artery, posterior cerebral arteries, and posterior communicating arteries are normally opacified. No significant stenosis/occlusion. No aneurysm formation of AVM. IMPRESSION: No significant stenosis/occlusion or aneurysm. The left frontal cortical-subcortical hypodense area was redemonstrated. Electronically Signed by: Colby Dang MD. 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
--- NOTE | 2023-06-27 10:00 | XRAY ---
CLINICAL HISTORY:smoker COMPARISON:None TECHNIQUE:X-ray of the chest, PA, and lateral 2 views. FINDINGS: A radiographic examination of the chest demonstrates clear lungs. Normal configuration of the mediastinum. The bushra are normal in size and position. The cardiac size is normal. Costophrenic and cardiophrenic angles are clear. Retrocardiac and retrosternal spaces are normal. Bony thorax is unremarkable. IMPRESSION: No active pulmonary pathology detected. Electronically Signed by: Colby Dang MD. (06/27/2023 08:59:29 [employer])
[2023-06-27] MEDS: PLAVIX Tablet PO SCH (10:09)
[2023-06-27] MEDS: ECOTRIN 81 MG PO SCH (10:09)
[2023-06-27] MEDS: Trandate 100 MG PO SCH (10:09)
[2023-06-27] MEDS: Nicoderm CQ 21 MG TOP SCH (10:10)
[2023-06-27] MEDS: LIPITOR 40MG PO SCH (10:22)
[2023-06-27] MEDS ORDERED: BABY ASPIRIN 81 MG CHEW PO SCH (22:00)
[2023-06-27] MEDS ORDERED: Flomax 0.4 MG PO SCH (22:00)
[2023-06-27] MEDS ORDERED: ECOTRIN 81 MG PO SCH (22:00)
[2023-06-28] MEDS: Trandate 100 MG PO SCH ×2 (03:25→09:14)
[2023-06-28 04:32] LABS: Absolute Neutrophil Ct (ANC) 5.57 x10^3/uL (1.4-6.9); BASOPHIL % 0.7 % (0.0-0.4); Basophil (Absolute #) 0.07 x10^3/uL (0-0.4); Eosinophil % 2.7 % (0.00-5.0); Eosinophil (Absolute #) 0.26 x10^3/uL (0-0.5); Hematocrit 46.5 % (42-50); Hemoglobin 15.1 g/dL (12.5-18.0); IMMATURE GRAN # 0.03 x10^3u/L (0.00-0.03); IMMATURE GRAN % 0.3 % (0.00-0.4); Lymphocyte (Absolute #) 2.98 x10^3/uL (1.0-4.6); Lymphocytes % 30.9 % (24.0-44.0); Mean Cell Volume 96.5 fL (78-100); Mean Corpuscular Hemoglobin 31.3 pg (26-32); Mean Corpuscular Hgb Concent. 32.5 g/dL (32-36); Mean Platelet Volume 11.6 fL (7.5-11.0); Monocyte (Absolute #) 0.74 x10^3/uL (0.0-1.3); Monocytes % 7.7 % (0.0-12.0); Neutrophil % 57.7 % (36.0-66.0); Platelet Count 189 x10^3/uL (150-450); Red Blood Count 4.82 x10^6/uL (4.1-5.6); Red Cell Distribution Width 13.6 % (11.5-14.0); White Blood Count 9.7 x10^3/uL (4.0-10.5)
[2023-06-28 04:40] LABS: ALBUMIN 3.5 g/dL (3.5-5.0); ALKALINE PHOSPHATASE 108 U/L (38-126); ANION GAP 10.6 MEQ/L (5-15); BLOOD UREA NITROGEN 22 mg/dL (9-20); CHLORIDE 110 mmol/L (98-107); Calcium 8.3 mg/dL (8.4-10.2); Carbon Dioxide 23 mmol/L (22-30); Creatinine 1 0.89 mg/dL (0.66-1.25); EST GLOMERULAR FILTRATION RATE > 60.0 ML/MIN; Glucose 103 mg/dL (74-106); Potassium 4.2 mmol/L (3.5-5.1); SGOT/AST 22 U/L (17-59); SGPT/ALT 24 U/L (0-50); SODIUM 140 mmol/L (137-145); Total Protein 6.2 g/dL (6.3-8.2)
[2023-06-28 07:11] VITALS: RESP 16
[2023-06-28] MEDS: Sodium Chloride 0.9% 1000 ML 1,000 ML IV SCH (07:29)
--- NOTE | 2023-06-28 08:07 | PCM.NOTE ---
Date and Time: 06/28/23 6783 Subjective Assessment: Mr. Lobo is a 63 year old male with a PMHX of bph and current every day smoker. He presented to ER 06/26/23 with AMS per spouse, headache, and aphasia since 06/25. He was admitted for CVA which appears left frontal on CT. Tele- Neurology consulted. Pt was started on ASA, Plavix and Lipitor. Cholesterol is elevated. Pt to have Echo, MRI, MRA, and carotid duplex today. BP goal per neurology is <140/90. He currently has no deficits. He is irritable this morning and stated he is going home today. Discussed he has some further testing we would like to have done prior to D/C. He denies any other concerns at this time. <SEGUNDO LECHUGA - Last Filed: 06/28/23 07:59> Date and Time: 06/28/23 1632 <TRENTON RIBEIRO - Last Filed: 06/28/23 16:33> - Review of Systems Constitutional: No Fever, No Chills Eyes: No Symptoms Ears, Nose, & Throat: No Symptoms Respiratory: No Cough, No Short Of Breath Cardiac: No Chest Pain, No Edema, No Syncope Abdominal/Gastrointestinal: No Abdominal Pain, No Nausea, No Vomiting, No Diarrhea Genitourinary Symptoms: No Dysuria Musculoskeletal: No Back Pain, No Neck Pain Skin: No Rash Neurological: No Dizziness, No Focal Weakness, No Sensory Changes Psychological: No Symptoms Endocrine: No Symptoms Hematologic/Lymphatic: No Symptoms Immunological/Allergic: No Symptoms <SEGUNDO LECHUGA - Last Filed: 06/28/23 07:59> Objective Exam General Appearance: no apparent distress, alert Neurologic Exam: alert, oriented x 3, cooperative, nml cerebellar function, sensation nml, other (irritable), No motor deficits Skin Exam: normal color, warm, dry Eye Exam: PERRL, EOMI, eyes nml inspection Ears, Nose, Throat Exam: normal ENT inspection, pharynx normal, moist mucous membranes Neck Exam: normal inspection, non-tender, supple, full range of motion Respiratory Exam: normal breath sounds, lungs clear, No respiratory distress Cardiovascular Exam: regular rate/rhythm, normal heart sounds Gastrointestinal/Abdomen Exam: soft, No tenderness, No mass Extremity Exam: normal inspection, normal range of motion Back Exam: normal inspection, normal range of motion, No CVA tenderness, No vertebral tenderness Male Genitalia Exam: deferred Rectal Exam: deferred <SEGUNDO LECHUGA - Last Filed: 06/28/23 07:59> OBJECTIVE DATA Vital Signs: Vital Signs - 24 hr Temp Pulse Resp BP Pulse Ox 06/28/23 07:11 97.7 F 52 L 16 163/76 95 06/28/23 04:00 97.5 F 42 L 20 167/79 95 06/27/23 23:58 97.3 F 74 20 147/86 94 L 06/27/23 19:36 97.6 F 48 L 18 143/84 95 06/27/23 16:00 98.0 F 53 L 20 157/81 95 06/27/23 12:00 97.8 F 54 L 16 165/83 95 Pain Assessment - Last Documented Pain Intensity 0 Intake and Output: Intake & Output 06/25/23 06/26/23 06/27/23 06/28/23 11:59 11:59 11:59 11:59 Intake Total 1067 2578 Output Total 525 1475 Balance 542 1103 Weight 99.5 kg Lab Results: Lab Results-Last 24 Hours 06/27/23 06/27/23 06/28/23 Range/Units 08:00 08:00 04:14 WBC 9.7 (4.0-10.5) x10^3/uL RBC 4.82 (4.1-5.6) x10^6/uL Hgb 15.1 (12.5-18.0) g/dL Hct 46.5 (42-50) % MCV 96.5 (78-100) fL MCH 31.3 (26-32) pg MCHC 32.5 (32-36) g/dL RDW 13.6 (11.5-14.0) % Plt Count 189 (150-450) x10^3/uL MPV 11.6 H (7.5-11.0) fL Gran % 57.7 (36.0-66.0) % Immature Gran % (Auto) 0.3 (0.00-0.4) % Nucleat RBC Rel Count 0.0 (0.00-0.1) % Eos # (Auto) 0.26 (0-0.5) x10^3/uL Immature Gran # (Auto) 0.03 (0.00-0.03) x10^3u/L Absolute Lymphs (auto) 2.98 (1.0-4.6) x10^3/uL Absolute Monos (auto) 0.74 (0.0-1.3) x10^3/uL Absolute Nucleated RBC 0.00 (0.00-0.01) x10^3u/L Lymphocytes % 30.9 (24.0-44.0) % Monocytes % 7.7 (0.0-12.0) % Eosinophils % 2.7 (0.00-5.0) % Basophils % 0.7 (0.0-0.4) % Absolute Granulocytes 5.57 (1.4-6.9) x10^3/uL Basophils # 0.07 (0-0.4) x10^3/uL ESR 15 (0-15) mm/hr Sodium (137-145) mmol/L Potassium (3.5-5.1) mmol/L Chloride (98-107) mmol/L Carbon Dioxide (22-30) mmol/L Anion Gap (5-15) MEQ/L BUN (9-20) mg/dL Creatinine (0.66-1.25) mg/dL Estimated GFR ML/MIN Glucose (74-106) mg/dL Calcium (8.4-10.2) mg/dL Magnesium 2.2 (1.6-2.3) mg/dL Total Bilirubin (0.2-1.3) mg/dL AST (17-59) U/L ALT (0-50) U/L Alkaline Phosphatase (38-126) U/L Creatine Kinase 34 L (55-170) U/L Serum Total Protein (6.3-8.2) g/dL Albumin (3.5-5.0) g/dL 06/28/23 Range/Units 04:14 WBC (4.0-10.5) x10^3/uL RBC (4.1-5.6) x10^6/uL Hgb (12.5-18.0) g/dL Hct (42-50) % MCV (78-100) fL MCH (26-32) pg MCHC (32-36) g/dL RDW (11.5-14.0) % Plt Count (150-450) x10^3/uL MPV (7.5-11.0) fL Gran % (36.0-66.0) % Immature Gran % (Auto) (0.00-0.4) % Nucleat RBC Rel Count (0.00-0.1) % Eos # (Auto) (0-0.5) x10^3/uL Immature Gran # (Auto) (0.00-0.03) x10^3u/L Absolute Lymphs (auto) (1.0-4.6) x10^3/uL Absolute Monos (auto) (0.0-1.3) x10^3/uL Absolute Nucleated RBC (0.00-0.01) x10^3u/L Lymphocytes % (24.0-44.0) % Monocytes % (0.0-12.0) % Eosinophils % (0.00-5.0) % Basophils % (0.0-0.4) % Absolute Granulocytes (1.4-6.9) x10^3/uL Basophils # (0-0.4) x10^3/uL ESR (0-15) mm/hr Sodium 140 (137-145) mmol/L Potassium 4.2 (3.5-5.1) mmol/L Chloride 110 H (98-107) mmol/L Carbon Dioxide 23 (22-30) mmol/L Anion Gap 10.6 (5-15) MEQ/L BUN 22 H (9-20) mg/dL Creatinine 0.89 (0.66-1.25) mg/dL Estimated GFR > 60.0 ML/MIN Glucose 103 (74-106) mg/dL Calcium 8.3 L (8.4-10.2) mg/dL Magnesium 2.0 (1.6-2.3) mg/dL Total Bilirubin 0.70 (0.2-1.3) mg/dL AST 22 (17-59) U/L ALT 24 (0-50) U/L Alkaline Phosphatase 108 (38-126) U/L Creatine Kinase (55-170) U/L Serum Total Protein 6.2 L (6.3-8.2) g/dL Albumin 3.5 (3.5-5.0) g/dL Radiology Exams: Radiology Procedures Category Date Time Status CAROTID BILATERAL [US] Routine Exams 06/27/23 00:39 Ordered CHEST 2 VIEWS (PA AND LAT) Routine Exams 06/27/23 07:[address] ANGIOGRAPHY NECK [CT] Routine Exams 06/27/23 00:39 Completed CTA HEAD W AND/OR WO CONTRAST [CT] Routine Exams 06/27/23 08:00 Completed ECHO W/2D AND DOPPLER [US] Routine Exams 06/27/23 00:39 Ordered HEAD WITHOUT CONTRAST [CT] Stat Exams 06/26/23 20:21 Completed MRA BRAIN WITHOUT CONTRAST [MRI] Routine Exams 06/27/23 00:39 Ordered MRA NECK WITHOUT CONTRAST [MRI] Routine Exams 06/27/23 00:39 Ordered MRI BRAIN W & W/O CONTRAST [MRI] Routine Exams 06/27/23 00:39 Ordered <SEGUNDO LECHUGA - Last Filed: 06/28/23 07:59> Vital Signs: Vital Signs - 24 hr Temp Pulse Resp BP Pulse Ox 06/28/23 16:00 97.6 F 56 L 16 140/68 98 06/28/23 11:29 97.1 F 47 L 16 155/74 96 06/28/23 07:11 97.7 F 52 L 16 163/76 95 06/28/23 04:00 97.5 F 42 L 20 167/79 95 06/27/23 23:58 97.3 F 74 20 147/86 94 L 06/27/23 19:36 97.6 F 48 L 18 143/84 95 Pain Assessment - Last Documented Pain Intensity 0 Intake and Output: Intake & Output 06/26/23 06/27/23 06/28/23 06/29/23 11:59 11:59 11:59 11:59 Intake Total 1067 2638 480 Output Total 525 1775 200 Balance 542 863 280 Weight 99.5 kg Lab Results: Lab Results-Last 24 Hours 06/28/23 06/28/23 Range/Units 04:14 04:14 WBC 9.7 (4.0-10.5) x10^3/uL RBC 4.82 (4.1-5.6) x10^6/uL Hgb 15.1 (12.5-18.0) g/dL Hct 46.5 (42-50) % MCV 96.5 (78-100) fL MCH 31.3 (26-32) pg MCHC 32.5 (32-36) g/dL RDW 13.6 (11.5-14.0) % Plt Count 189 (150-450) x10^3/uL MPV 11.6 H (7.5-11.0) fL Gran % 57.7 (36.0-66.0) % Immature Gran % (Auto) 0.3 (0.00-0.4) % Nucleat RBC Rel Count 0.0 (0.00-0.1) % Eos # (Auto) 0.26 (0-0.5) x10^3/uL Immature Gran # (Auto) 0.03 (0.00-0.03) x10^3u/L Absolute Lymphs (auto) 2.98 (1.0-4.6) x10^3/uL Absolute Monos (auto) 0.74 (0.0-1.3) x10^3/uL Absolute Nucleated RBC 0.00 (0.00-0.01) x10^3u/L Lymphocytes % 30.9 (24.0-44.0) % Monocytes % 7.7 (0.0-12.0) % Eosinophils % 2.7 (0.00-5.0) % Basophils % 0.7 (0.0-0.4) % Absolute Granulocytes 5.57 (1.4-6.9) x10^3/uL Basophils # 0.07 (0-0.4) x10^3/uL Sodium 140 (137-145) mmol/L Potassium 4.2 (3.5-5.1) mmol/L Chloride 110 H (98-107) mmol/L Carbon Dioxide 23 (22-30) mmol/L Anion Gap 10.6 (5-15) MEQ/L BUN 22 H (9-20) mg/dL Creatinine 0.89 (0.66-1.25) mg/dL Estimated GFR > 60.0 ML/MIN Glucose 103 (74-106) mg/dL Calcium 8.3 L (8.4-10.2) mg/dL Magnesium 2.0 (1.6-2.3) mg/dL Total Bilirubin 0.70 (0.2-1.3) mg/dL AST 22 (17-59) U/L ALT 24 (0-50) U/L Alkaline Phosphatase 108 (38-126) U/L Serum Total Protein 6.2 L (6.3-8.2) g/dL Albumin 3.5 (3.5-5.0) g/dL Radiology Exams: Radiology Procedures Category Date Time Status CAROTID BILATERAL [US] Routine Exams 06/28/23 00:00 Completed CHEST 2 VIEWS (PA AND LAT) Routine Exams 06/27/23 07:[address] ANGIOGRAPHY NECK [CT] Routine Exams 06/27/23 00:39 Completed CTA HEAD W AND/OR WO CONTRAST [CT] Routine Exams 06/27/23 08:00 Completed ECHO W/2D AND DOPPLER [US] Routine Exams 06/28/23 00:00 Taken HEAD WITHOUT CONTRAST [CT] Stat Exams 06/26/23 20:21 Completed MRI BRAIN W & W/O CONTRAST [MRI] Routine Exams 06/28/23 00:39 Completed <TRENTON RIBEIRO - Last Filed: 06/28/23 16:33> Assessment/Plan (1) CVA (cerebrovascular accident) Current Visit: Yes Status: Acute Qualifiers: CVA mechanism: embolism Precerebral and cerebral artery: anterior cerebral artery Laterality of affected vessel: left Qualified Code(s): I63.422 - Cerebral infarction due to embolism of left anterior cerebral artery Assessment & Plan: CVA - tele -as evidenced by CT showing subacute/acute ischemic infarction, two areas in the left fronal lobe very anterior/ no mass effect; ventricular horn may have demonstrated some ex vacuo effect per neurology read -NIH score: 2 -Risk factors: Smoker, Age > 60 years, Blood pressure > 140/90 mmHg on presentation, Clinical features:speech disturbance without weakness Neurology consult obtained with the following recommendations: -Out of window for tPA/permissive htn, plan for gentle control of BP with goal <140 /<90 -Started on ASA 81 mg and high dose statin - Lipitor 80mg -CBC, BMP, Mg, lipid panel, TSH, HgbA1c, cpk, esr, crp, - CXR 06/27: No active pulmonary pathology detected -Will maintain on Telemetry to check for Arrhythmias and may eventually need to be discharged on Holter Monitor -today scheduled for MRA Head and Neck and an ECHO bubble study; carotid duplex- pending -PT/OT and maintain NPO until evaluated by CLINICAL PSYCHOLOGIST LICENSED -Neurochecks Q4H -NIHSS monitoring - Per guidelines, (CHANCE & POINT) will initiate 3 weeks dual antiplatelets, loading with ASA 325 mg and Plavix 300 mg, then continue after 24 hours with ASA 81 mg daily and Plavix 75 mg daily. After 3 weeks to continue with one antiplatelet ASA 81 mg daily, for secondary stroke prevention. If LD >70 then to switch to Atorvastatin 80 mg daily (LDL goal less than 70 mg/dL, per SPARCL associated with 28% RRR, and 5 years ARR of 2.2%) for secondary stroke prevention. - LFTs wnl -Advise smoking cessation, patient will consider, nicotine patch prn (declines currently) Code(s): I63.9 - CEREBRAL INFARCTION, UNSPECIFIED (2) Essential hypertension with goal blood pressure less than 140/90 Current Visit: Yes Status: Acute Assessment & Plan: -See CVA, past permissive HTN, labetalol 50mg po bid for goal of <140/90 per neuro recs Code(s): I10 - ESSENTIAL (PRIMARY) HYPERTENSION (3) Hyperlipidemia Current Visit: Yes Status: Acute Assessment & Plan: - Chol 205, LDL, 134, HDL, 33 - Started on Lipitor 80mg daily Code(s): E78.5 - HYPERLIPIDEMIA, UNSPECIFIED (4) Smoker Current Visit: Yes Status: Chronic Assessment & Plan: - Advised cessation - declined nicotine patch Code(s): F17.200 - NICOTINE DEPENDENCE, UNSPECIFIED, UNCOMPLICATED <SEGUNDO LECHUGA - Last Filed: 06/28/23 07:59>
[2023-06-28] MEDS: PLAVIX Tablet PO SCH (09:14)
[2023-06-28] MEDS: ECOTRIN 81 MG PO SCH (09:14)
[2023-06-28] MEDS: LIPITOR 40MG PO SCH (09:15)
[2023-06-28] MEDS: Nicoderm CQ 21 MG TOP SCH (09:17)
[2023-06-28] MEDS ORDERED: Pepcid 20 MG PO SCH (10:00)
[2023-06-28] MEDS ORDERED: NORVASC 5 MG PO SCH (10:00)
--- NOTE | 2023-06-28 11:50 | XRAY ---
Indication: Left frontal CVA. Two-dimensional sonogram and color Doppler imaging of the carotid arteries of the neck performed. Comparison: None Examination of the right carotid circulation demonstrates very minimal heterogeneous plaquing of the level of the bulb. Remaining common carotid, internal carotid, and external carotid arteries are widely patent. PSV of the CCA is 79 cm/s. PSV of the ICA is 79 cm/s. ICA/CCA ratio is 1.0. Normal antegrade vertebral artery flow. Examination of the left carotid circulation also demonstrates very minimal heterogeneous plaquing at the level of the bulb. Remaining common carotid, internal carotid, and external carotid arteries are widely patent. PSV of the CCA is 59 cm/s. PSV of the ICA is 104 cm/s. ICA/CCA ratio is 1.8. Normal antegrade vertebral artery flow. Impression: Very minimal plaquing bilaterally as detailed. Negative for critical stenosis/obstruction. Velocity measurements and ratios are also negative for hemodynamically significant flow-limiting stenosis.
--- NOTE | 2023-06-28 13:35 | XRAY ---
Indication: Stroke. Abnormal left frontal lobe on recent CT head June 26, 2023. Sagittal, coronal, and axial MRI brain performed using pre and post T1, T2, FLAIR, diffusion, and ADC sequences. 20 cc Doterem contrast used. Comparison: None Age-appropriate global atrophy. Brainstem/jessica demonstrates minimal degenerative micro-ischemia signal. Left frontal lobe demonstrates focus of cortical/subcortical restricted signal measuring at least 5.0 x 2.2 x 3.7 cm favoring acute ischemia. Following gadolinium, there is minimal surrounding enhancement favoring luxury reperfusion. Additional surrounding left frontal and also left posterior temporal petechial restricted signal favoring acute micro-ischemia. No acute intracranial hemorrhage, abnormal extra-axial fluid collection, or mass effect. Fourth ventricle is midline without hydrocephalus. 7/8 cranial nerve complex bilaterally symmetric. Sluggish flow suggested left parasellar internal carotid artery. Normal flow void signal within the remaining major intracerebral circulation. Normal appearing craniocervical junction and sella turcica. Mild mucosal thickening both ethmoid and lesser degree left frontal sinuses without fluid leveling. Impression: 1. Left cerebral multifocal acute ischemia greatest frontal lobe as detailed. No acute hemorrhage or mass effect. Sluggish flow suggested left parasellar internal carotid artery. 2. Atrophy and degenerative micro-ischemia within normal limits for patient's age. 3. Incidental paranasal sinus disease.
[2023-06-28 16:01] VITALS: BP 140/68; PULSE 56; TEMP 97.6; O2SAT 98
--- NOTE | 2023-06-28 16:03 | PCM.DS ---
Discharge Summary Date of Admission: 06/27/23 00:14 Date of Discharge: 06/28/23 Admitting Physician: AKASH SCHAEFER MD Consults: Consults on Case 06/26/23 21:15 Tele-Health Consult ROUTINE Primary Care Provider: APOLINAR CARRILLO Allergies Allergies No Known Drug Allergies Allergy (Verified 06/26/23 20:09) Hospital Summary - Hospital Course Hospital Course: Mr. Lobo is a 63 year old male with a PMHX of bph and current every day smoker. He presented to ER 06/26/23 with AMS per spouse, headache, and aphasia since 06/25. He was admitted for CVA which appears left frontal on CT. Tele- Neurology consulted. Pt was started on ASA, Plavix and Lipitor. Cholesterol is elevated. Pt to have Echo, MRI,and carotid duplex today. Unable to do MRA due to no tech to do testing IP. Can only be done at another facility in case of emergency per policy. Pt is wanting to leave today. BP goal per neurology is <140/90. He currently has no deficits. He is irritable this morning and stated he is going home today. Discussed he has some further testing we would like to have done prior to D/C. He denies any other concerns at this time. Discussed case with tele- neurology and they are ok with D/C. Pt will neeed OP 30 days cardiac event monitor. Continue ASA, PLavix and statin for 3 months. Will need to f/u with echo results OP. - Vitals & Intake/Output Vital Signs: Vital Signs Temperature 97.1 F 06/28/23 11:29 Pulse Rate 47 L 06/28/23 11:29 Respiratory Rate 16 06/28/23 11:29 Blood Pressure 155/74 06/28/23 11:29 O2 Sat by Pulse Oximetry 96 06/28/23 11:29 Intake & Output: Intake & Output 06/26/23 06/27/23 06/28/23 06/29/23 11:59 11:59 11:59 11:59 Intake Total 1067 2638 480 Output Total 525 1775 200 Balance 542 863 280 Weight 99.5 kg - Lab Result Diagrams: 06/28/23 04:14 06/28/23 04:14 Lab Results-Last 24 Hrs: Lab Results-Last 24 Hours 06/28/23 06/28/23 Range/Units 04:14 04:14 WBC 9.7 (4.0-10.5) x10^3/uL RBC 4.82 (4.1-5.6) x10^6/uL Hgb 15.1 (12.5-18.0) g/dL Hct 46.5 (42-50) % MCV 96.5 (78-100) fL MCH 31.3 (26-32) pg MCHC 32.5 (32-36) g/dL RDW 13.6 (11.5-14.0) % Plt Count 189 (150-450) x10^3/uL MPV 11.6 H (7.5-11.0) fL Gran % 57.7 (36.0-66.0) % Immature Gran % (Auto) 0.3 (0.00-0.4) % Nucleat RBC Rel Count 0.0 (0.00-0.1) % Eos # (Auto) 0.26 (0-0.5) x10^3/uL Immature Gran # (Auto) 0.03 (0.00-0.03) x10^3u/L Absolute Lymphs (auto) 2.98 (1.0-4.6) x10^3/uL Absolute Monos (auto) 0.74 (0.0-1.3) x10^3/uL Absolute Nucleated RBC 0.00 (0.00-0.01) x10^3u/L Lymphocytes % 30.9 (24.0-44.0) % Monocytes % 7.7 (0.0-12.0) % Eosinophils % 2.7 (0.00-5.0) % Basophils % 0.7 (0.0-0.4) % Absolute Granulocytes 5.57 (1.4-6.9) x10^3/uL Basophils # 0.07 (0-0.4) x10^3/uL Sodium 140 (137-145) mmol/L Potassium 4.2 (3.5-5.1) mmol/L Chloride 110 H (98-107) mmol/L Carbon Dioxide 23 (22-30) mmol/L Anion Gap 10.6 (5-15) MEQ/L BUN 22 H (9-20) mg/dL Creatinine 0.89 (0.66-1.25) mg/dL Estimated GFR > 60.0 ML/MIN Glucose 103 (74-106) mg/dL Calcium 8.3 L (8.4-10.2) mg/dL Magnesium 2.0 (1.6-2.3) mg/dL Total Bilirubin 0.70 (0.2-1.3) mg/dL AST 22 (17-59) U/L ALT 24 (0-50) U/L Alkaline Phosphatase 108 (38-126) U/L Serum Total Protein 6.2 L (6.3-8.2) g/dL Albumin 3.5 (3.5-5.0) g/dL - Radiology Exams Ordered Rad Exams-Entire Visit: Radiology Procedures Category Date Time Status CAROTID BILATERAL [US] Routine Exams 06/28/23 00:00 Completed CHEST 2 VIEWS (PA AND LAT) Routine Exams 06/27/23 07:[address] ANGIOGRAPHY NECK [CT] Routine Exams 06/27/23 00:39 Completed CTA HEAD W AND/OR WO CONTRAST [CT] Routine Exams 06/27/23 08:00 Completed ECHO W/2D AND DOPPLER [US] Routine Exams 06/28/23 00:00 Taken HEAD WITHOUT CONTRAST [CT] Stat Exams 06/26/23 20:21 Completed MRA BRAIN WITHOUT CONTRAST [MRI] Routine Exams 06/27/23 00:39 Ordered MRA NECK WITHOUT CONTRAST [MRI] Routine Exams 06/27/23 00:39 Ordered MRI BRAIN W & W/O CONTRAST [MRI] Routine Exams 06/28/23 00:39 Completed - Procedures and Test Procedures and Tests throughout Hospitalization: Therapy Orders & Screens 06/27/23 00:39 PT Eval & Treat ( Order) ONCE Reason for Eval:: CV stroke Diagnosis: CV stroke ST Eval & Treat ( Order) ROUTINE Comment: Physician Instructions: Reason For Exam: Evaluate: Yes Treat: Yes Reason for Eval: CV stroke Diagnosis: CV stroke OT Eval and Treat ( Order) ONCE Comment: Physician Instructions: Reason For Exam: 06/27/23 01:36 OT Screen per Nursing Assess ONCE Comment: Protocol Order Physician Instructions: Greater than 3 points order OT Admission Screening Reason For Exam: Triggered on Admission Diagnosis: cva Open Wound/Cellutlitis/Pressure Ulcers: No Acute Fx/ORIF/Change in wt bearing status: No Severe MUSCULOSKELETAL pain: No ADL Dysfunction: No Acute CVA w/Hemiparesis/Hemiplegia: Yes: right side slightly weak Decreased Functional Mobility/Strength: Yes: very mild Sprain/Strain: No Acute Post-op Mobility Dysfunction: No Total Points: 6 PT Screen per Nursing Assess ONCE Comment: Protocol Order Physician Instructions: Greater than 3 points order PT Admission Screenin Reason For Exam: Triggered on Admission Diagnosis: cva Open Wound/Cellutlitis/Pressure Ulcers: No Acute Fx/ORIF/Change in wt bearing status: No Severe MUSCULOSKELETAL pain: No ADL Dysfunction: No Acute CVA w/Hemiparesis/Hemiplegia: Yes: right side slightly weak Decreased Functional Mobility/Strength: Yes: very mild Sprain/Strain: No Acute Post-op Mobility Dysfunction: No Total Points: 6 Smoking Cessation Education ONCE Comment: Diagnosis: cva Smoking Status: Current every day smoker How long have you smoked: 40 years Have you smoked in the past 12 months: Yes Approximately how many cigarettes per day: 1 ppd Do you dip or chew tobacco: No ST Screen per Nursing Assess ONCE Comment: Protocol Order Physician Instructions: Greater than [address] Admission Screening Reason For Exam: Triggered on Admission Diagnosis: cva CVA/Dyshpagia/Aphasia: Yes: no swallowing difficultie Cognitive Deficits: No Dehydration/Nutrition Deficit: No Reflux: No Oral-Motor Difficulties: No Pneumonia: No Senior Care Resident: No Total Points: 5 Discharge Exam General Appearance: no apparent distress, alert Neurologic Exam: alert, oriented x 3, cooperative, normal mood/affect, nml cerebellar function, sensation nml, No motor deficits Eye Exam: PERRL, EOMI, eyes nml inspection Ears, Nose, Throat Exam: normal ENT inspection, pharynx normal, moist mucous membranes Neck Exam: normal inspection, non-tender, supple, full range of motion Respiratory Exam: normal breath sounds, lungs clear, No respiratory distress Cardiovascular Exam: regular rate/rhythm, normal heart sounds Gastrointestinal/Abdomen Exam: soft, No tenderness, No mass Male Genitalia Exam: deferred Rectal Exam: deferred Back Exam: normal inspection, normal range of motion, No CVA tenderness, No vertebral tenderness Extremity Exam: normal inspection, normal range of motion Skin Exam: normal color, warm, dry Final Diagnosis/Problem List - Final Discharge Diagnosis/Problem (1) CVA (cerebrovascular accident) Current Visit: Yes Status: Acute Code(s): I63.9 - CEREBRAL INFARCTION, UNSPECIFIED (2) Essential hypertension with goal blood pressure less than 140/90 Current Visit: Yes Status: Acute Code(s): I10 - ESSENTIAL (PRIMARY) HYPERTENSION (3) Hyperlipidemia Current Visit: Yes Status: Acute Code(s): E78.5 - HYPERLIPIDEMIA, UNSPECIFIED (4) Smoker Current Visit: Yes Status: Chronic Assessment & Plan: 1) CVA (cerebrovascular accident) Current Visit: Yes Status: Acute Qualifiers: CVA mechanism: embolism Precerebral and cerebral artery: anterior cerebral artery Laterality of affected vessel: left Qualified Code(s): I63.422 - Cerebral infarction due to embolism of left anterior cerebral artery Assessment & Plan: CVA - tele -as evidenced by CT showing subacute/acute ischemic infarction, two areas in the left fronal lobe very anterior/ no mass effect; ventricular horn may have demonstrated some ex vacuo effect per neurology read -NIH score: 2 -Risk factors: Smoker, Age > 60 years, Blood pressure > 140/90 mmHg on presentation, Clinical features:speech disturbance without weakness Neurology consult obtained with the following recommendations: -Out of window for tPA/permissive htn, plan for gentle control of BP with goal <140 /<90 -Started on ASA 81 mg and high dose statin - Lipitor 80mg -CBC, BMP, Mg, lipid panel, TSH, HgbA1c, cpk, esr, crp, - CXR 06/27: No active pulmonary pathology detected -Will maintain on Telemetry to check for Arrhythmias and may eventually need to be discharged on Holter Monitor -today scheduled for MRA Head and Neck and an ECHO bubble study; carotid duplex- pending -PT/OT and maintain NPO until evaluated by BUSINESS OFFICE ASSISTANT [facility] -NIHSS monitoring - Per guidelines, (CHANCE & POINT) will initiate 3 weeks dual antiplatelets, loading with ASA 325 mg and Plavix 300 mg, then continue after 24 hours with ASA 81 mg daily and Plavix 75 mg daily. After 3 weeks to continue with one antiplatelet ASA 81 mg daily, for secondary stroke prevention. If LD >70 then to switch to Atorvastatin 80 mg daily (LDL goal less than 70 mg/dL, per SPARCL associated with 28% RRR, and 5 years ARR of 2.2%) for secondary stroke prevention. - LFTs wnl -Advise smoking cessation, patient will consider, nicotine patch prn (declines currently) - MRI and Carotid venous duplex reviewed with neurology. - per neurology pt seun need to f/u with cardiology and neurology OP -Continue ASA, Plavix, and statin - Will set up 30 day OP cardiac event monitoring Code(s): I63.9 - CEREBRAL INFARCTION, UNSPECIFIED (2) Essential hypertension with goal blood pressure less than 140/90 Current Visit: Yes Status: Acute Assessment & Plan: -See CVA, past permissive HTN, labetalol 50mg po bid for goal of <140/90 per neuro recs Code(s): I10 - ESSENTIAL (PRIMARY) HYPERTENSION (3) Hyperlipidemia Current Visit: Yes Status: Acute Assessment & Plan: - Chol 205, LDL, 134, HDL, 33 - Started on Lipitor 80mg daily Code(s): E78.5 - HYPERLIPIDEMIA, UNSPECIFIED (4) Smoker Current Visit: Yes Status: Chronic Assessment & Plan: - Advised cessation - declined nicotine patch Code(s): F17.200 - NICOTINE DEPENDENCE, UNSPECIFIED, UNCOMPLICATED Code(s): F17.200 - NICOTINE DEPENDENCE, UNSPECIFIED, UNCOMPLICATED - Discharge Discharge Date: 06/28/23 Disposition: Home, Self-Care Condition: Fair Prescriptions: New Aspirin EC 81 mg [Ecotrin 81 mg] 81 mg PO DAILY 90 Days #90 tablet Atorvastatin Calcium [Lipitor 40Mg] 80 mg PO DAILY 90 Days #90 tablet Amlodipine Besylate 5 mg [Norvasc 5 mg] 5 mg PO QAM 90 Days #90 tablet Clopidogrel Bisulfate [PLAVIX Tablet] 75 mg PO DAILY 90 Days #90 tablet Labetalol HCl 100 mg [Trandate 100 MG] 50 mg PO BID 90 Days #180 tablet Continue Tamsulosin HCl 0.4 mg [Flomax 0.4 MG] 0.4 mg PO DAILY Instructions: Quitting Smoking for Older Adults, Stroke (DC) Follow up with: APOLINAR CARRILLO [Primary Care Provider] - 07/05/23 9:30 am
== END 2023-06-28 17:55 | disposition home or self-care (01) ==
LOC: ED 20:05 → INTOOBSV 06-27 00:14 → MED SURG 06-27 00:14
PROVIDERS: ADMIT Internal Medicine; ATTEND Internal Medicine
DX: I63.422 Cerebral infarction due to embolism of left anterior cerebral artery (principal); N40.0 Benign prostatic hyperplasia without lower urinary tract symptoms; F17.210 Nicotine dependence, cigarettes, uncomplicated; I10 Essential (primary) hypertension; E78.5 Hyperlipidemia, unspecified; Z79.899 Other long term (current) drug therapy; Z20.828 Contact with and (suspected) exposure to other viral communicable diseases
CPT/HCPCS: 36000; 36415; 70450; 70496; 70498; 70553; 71046; 80053; 80061; 81001; 82077; 82550; 83036; 83721; 83735; 84484; 85025; 85652; 86140; 93005; 93041; 93246; 93268; 93306; 93880; 96360; 96361; 96374; 99285; 99291; Q3014; A9270-GY; G0378